=== PATIENT | male | born 1985 | race Caucasian/White ===

== ENCOUNTER 2016-12-03 10:45 | Emergency (ER) | payer SELFPAY ==
[2016-12-03 10:59] VITALS: TEMP 98; BMI 29.5
[2016-12-03] MEDS ORDERED: ASPIRIN 81 MG CHEWABLE TABLETS PO ONE (11:47)
--- NOTE | 2016-12-03 11:47 | PDOC ---
History of Present Illness - General Chief Complaint: Chest Pain Stated Complaint: LEFT UPPER CHEST PRESSURE & MUSCLE CRAMPING Time Seen by Provider: 12/03/16 10:51 History Source: Patient Exam Limitations: No Limitations - History of Present Illness Initial Comments: 31 yo M no PMH presents with L-sided chest pain for past 2 days. He states that it feels like a tightness. No associated SOB, N/V, diaphoresis, SERRA. No known trauma. He states that he has been under very high stress, particularly as he was recently laid off and does not have insurance anymore. He also notes that he has strong family history of CAD. He does not have a PMD, and has not had any cardiac testing in the past. He is an active smoker (he previously quit last fall but has been smoking again), and drinks alcohol socially. Past History - Past Medical History Allergies/Adverse Reactions: Allergies Allergy/AdvReac Type Severity Reaction Status Date / Time No Known Allergies Allergy Verified 12/03/16 10:48 Home Medications: Ambulatory Orders NK [No Known Home Medication] 12/03/16 GI Disorders: Yes - Surgical History Abdominal Surgery: Yes (UMBILICAL HERNIA REPAIR, MESH) - Psycho/Social/Smoking Cessation Hx Anxiety: No Suicidal Ideation: No Smoking History: Current every day smoker Have you smoked in the past 12 months: Yes Number of Cigarettes Smoked Daily: 20 Information on smoking cessation initiated: Yes 'Breaking Loose' booklet given: 02/08/16 Hx Alcohol Use: Yes (EVERY OTHER DAY) Drug/Substance Use Hx: No Substance Use Type: None Review of Systems - Review of Systems Able to Perform ROS?: Yes Comments:: GENERAL/CONSTITUTIONAL: No fever or chills. No weakness. HEAD, EYES, EARS, NOSE AND THROAT: No change in vision. No ear pain or discharge. No sore throat. CARDIOVASCULAR: +Chest pain. No shortness of breath. RESPIRATORY: No cough, wheezing, or hemoptysis. GASTROINTESTINAL: No nausea, vomiting, diarrhea or constipation. GENITOURINARY: No dysuria, frequency, or change in urination. MUSCULOSKELETAL: No joint or muscle swelling or pain. No neck or back pain. SKIN: No rash NEUROLOGIC: No headache, vertigo, loss of consciousness, or change in strength/ sensation. ENDOCRINE: No increased thirst. No abnormal weight change. HEMATOLOGIC/LYMPHATIC: No anemia, easy bleeding, or history of blood clots. ALLERGIC/IMMUNOLOGIC: No hives or skin allergy. *Physical Exam - Vital Signs Last Vital Signs Temp Pulse Resp BP Pulse Ox 98.0 F 88 15 127/96 97 12/03/16 10:48 12/03/16 10:48 12/03/16 10:48 12/03/16 10:48 12/03/16 10:48 - Physical Exam Comments: GENERAL: Awake, alert, and fully oriented, in no acute distress. Mildly anxious. HEAD: No signs of trauma EYES: PERRLA, EOMI, sclera anicteric, conjunctiva clear ENT: Auricles normal inspection, hearing grossly normal, nares patent, oropharynx clear without exudates. Moist mucosa NECK: Normal ROM, supple, no lymphadenopathy, JVD, or masses LUNGS: Breath sounds equal, clear to auscultation bilaterally. No wheezes, and no crackles HEART: Regular rate and rhythm, normal S1 and S2, no murmurs, rubs or gallops ABDOMEN: Soft, nontender, normoactive bowel sounds. No guarding, no rebound. No masses EXTREMITIES: Normal range of motion, no edema. No clubbing or cyanosis. No cords , erythema, or tenderness NEUROLOGICAL: Cranial nerves II through XII grossly intact. Normal speech, normal gait SKIN: Warm, Dry, normal turgor, no rashes or lesions noted. Heart Score/ECG Review - History History: Slightly suspicious - Electrocardiogram EKG: Normal - Age Age: </= 45 - Risk Factors Risk Factors Heart Score: Yes Positive family hx of cardiac disease Based on the list above the patient has:: 1-2 risk factors - Troponin Troponin: </= normal limit - Score Heart Score - Total: 1 - ECG Impressions Comment:: EKG 10:55- NSR 68 bpm, no acute ST/T changes ED Treatment Course - LABORATORY CBC & Chemistry Diagram: 12/03/16 11:50 12/03/16 11:50 Medical Decision Making - Medical Decision Making Low risk for PE or ACS by clinical eval. HEART score is low, EKG is wnl. CXR no acute findings. However, he does have family history, and should have a PMD with outpatient f/u. IN light of recent lost health insurance, I recommended the [facility]. I counseled him that he may need additional testing as an outpatient. We also discussed smoking cessation. *DC/Admit/Observation/Transfer Diagnosis at time of Disposition: Chest pain Qualifiers: Chest pain type: unspecified Qualified Code(s): R07.9 - Chest pain, unspecified - Discharge Dispostion Disposition: HOME Condition at time of disposition: Stable Admit: No - Referrals Referrals: Tiana Hammond MD [Staff Physician] - Shana Macdonald MD [Staff Physician] - - Patient Instructions Printed Discharge Instructions: Tips to Help You Stop Smoking, DI for Chest Pain Additional Instructions: TAKE A BABY ASPIRIN (81 MG CHEWABLE) DAILY UNTIL YOU FOLLOW UP.
[2016-12-03 12:09] LABS: BASOPHIL 2.6 % (0-2.0); EOSINOPHIL 1.7 % (0-4.5); MCH 31.9 pg (25.7-33.7); MCHC 35.2 g/dl (32.0-35.9); MEAN CELL VOLUME 90.6 fl (80-96); NEUTROPHILS 59.8 % (42.8-82.8); PLATELET COUNT 188 K/MM3 (134-434); RDW 11.2 % (11.9-15.9); WHITE BLOOD COUNT 7.5 K/mm3 (4.0-10.8)
[2016-12-03 12:11] VITALS: BP 132/85; PULSE 63
[2016-12-03 12:24] LABS: ALBUMIN 3.9 g/dl (3.5-5.0); ALK PHOS 47 U/L (32-92); ANION GAP 7 (8-16); BILIRUBIN,TOTAL 0.7 mg/dl (0.2-1.0); CALCIUM 9.6 mg/dl (8.4-10.2); CO2 26 mmol/L (22-28); CPK(DFH) 214 IU/L (38-174); CREATININE 1.2 mg/dl (0.6-1.3); GLUCOSE,RANDOM 100 mg/dl (74-106); SGOT/AST 39 U/L (10-42); SGPT/ALT 62 U/L (10-40); TOT PROT 6.7 g/dl (6.4-8.3)
[2016-12-03 12:31] LABS: TROPONIN I (DFP) < 0.03 ng/ml (0.03-0.50)
--- NOTE | 2016-12-04 14:45 | EKG ---
Test Reason : Blood Pressure : / mmHG Vent. Rate : 068 BPM Atrial Rate : 068 BPM P-R Int : 160 ms QRS Dur : 074 ms QT Int : 380 ms P-R-T Axes : 052 -02 033 degrees QTc Int : 404 ms NORMAL SINUS RHYTHM NORMAL ECG NO PREVIOUS ECGS AVAILABLE Confirmed by KEREN DUMONT MD ([id number]) on 12/04/2016 2:45:11 PM Referred By: MD STEVEN Confirmed By:KEREN DUMONT MD
== END 2016-12-03 12:47 | disposition home or self-care (01) ==
LOC: FER 10:45
DX: R07.9 Chest pain, unspecified (principal); F17.210 Nicotine dependence, cigarettes, uncomplicated
CPT/HCPCS: 36415; 71010-TC; 80053; 82550; 82553; 83690; 84484; 85025; 93005; 99285-25

== ENCOUNTER 2017-01-21 17:30 | Emergency (ER) | payer OTHER ==
[2017-01-21 17:48] VITALS: BP 134/101; PULSE 94; TEMP 97.9; BMI 31.0
--- NOTE | 2017-01-21 17:57 | PDOC ---
History of Present Illness - General History Source: Patient Exam Limitations: No Limitations - History of Present Illness Initial Comments: 01/21/17 18:13 The patient is a 31 year old male, with no significant past medical history who presents to the emergency department with white discharge from his penis, dysuria, and urinary urgency since saturday. The patient reports having discharge only during the morning. He reports his pain is mild. He denies using protection , but notes having the same partner for about 2 years. He denies any anal sex. He denies any recent fevers, chills, headache or dizziness. He denies any recent nausea, vomit, diarrhea or constipation. He denies any recent chest pain or shortness of breath. He denies any recent frequency or hematuria. Allergies: NKA Past surgical history: None reported. Social History: Nonsmoker. Denies EtOH use and recreational drug use. <Yo Allen - Last Filed: 01/21/17 18:12> <Monico Guillen - Last Filed: 01/21/17 18:40> - General Chief Complaint: Urinary Problem Stated Complaint: URINARY SX Time Seen by Provider: 01/21/17 17:32 Past History <Yo Allen - Last Filed: 01/21/17 18:12> - Past Medical History GI Disorders: Yes (HEARTBURN) - Surgical History Abdominal Surgery: Yes (UMBILICAL HERNIA REPAIR, MESH) - Psycho/Social/Smoking Cessation Hx Anxiety: No Suicidal Ideation: No Smoking History: Current every day smoker Have you smoked in the past 12 months: Yes Number of Cigarettes Smoked Daily: 10 Information on smoking cessation initiated: Yes 'Breaking Loose' booklet given: 01/21/17 Hx Alcohol Use: (social) Drug/Substance Use Hx: No Substance Use Type: None <Monico Guillen - Last Filed: 01/21/17 18:40> - Past Medical History Allergies/Adverse Reactions: Allergies Allergy/AdvReac Type Severity Reaction Status Date / Time No Known Allergies Allergy Verified 01/21/17 17:31 Home Medications: Ambulatory Orders Omeprazole/Sodium Bicarbonate [Zegerid 20mg (RX)] 1 each PO DAILY 01/21/17 Varenicline Tartrate [Chantix] 1 mg PO ASDIR 01/21/17 Review of Systems - Review of Systems Able to Perform ROS?: Yes Comments:: 01/21/17 18:13 CONSTITUTIONAL: No reported: Fever, Chills, Diaphoresis, Generalized Weakness, Malaise, Loss of Appetite HEENT: No reported: Rhinorrhea, Nasal Congestion, Throat Pain, Throat Swelling, Difficulty Swallowing, Mouth Swelling, Ear Pain, Eye Pain, Visual Changes CARDIOVASCULAR: No reported: Chest Pain, Syncope, Palpitations, Irregular Heart Rate, Lightheadedness, Peripheral Edema RESPIRATORY: No reported: Cough, Shortness of Breath, SOB with Exertion, Orthopnea, Wheezing , Stridor, Hemoptysis GASTROINTESTINAL: No reported: Abdominal pain, Abdominal Distension, Nausea, Vomiting, Diarrhea, Constipation, Melena, Hematochezia GENITOURINARY: + Dysuria, Frequency, Urgency No Hesitancy, Flank Pain, Genital Pain MUSCULOSKELETAL: No reported: Myalgia, Arthralgia, Joint Swelling, Back pain, Neck Pain SKIN: No reported: Rash, Itching, Pallor HEMATOLOGIC/IMMUNOLOGIC: No reported: Easy Bleeding, Easy Bruising, Lymphadenopathy, Frequent infections ENDOCRINE: No reported: Unexplained Weight Gain, Unexplained Weight Loss, Heat Intolerance , Cold Intolerance NEUROLOGIC: No reported: Headache, Focal Weakness, Paresthesias, Vertigo, Lightheadedness, Unsteady Gait, Seizure, Mental Status Changes, Incontinence PSYCHIATRIC: No reported: Anxiety, Depression <Yo Allen - Last Filed: 01/21/17 18:12> *Physical Exam - Vital Signs Last Vital Signs Temp Pulse Resp BP Pulse Ox 97.9 F 94 H 18 134/101 99 01/21/17 17:30 01/21/17 17:30 01/21/17 17:30 01/21/17 17:30 01/21/17 17:30 - Physical Exam Comments: 01/21/17 18:13 GENERAL: The patient is awake, alert, and fully oriented, Nontoxic - in no acute distress. HEAD: Normocephalic, atraumatic. ABDOMEN: Soft, nontender, normoactive bowel sounds. No guarding, no rebound.No CVA tenderness : Circumcised penis. No rashes. No discharge. Normal testicular exam. SKIN: Warm, Dry, normal turgor. <Yo Allen - Last Filed: 01/21/17 18:12> - Vital Signs Last Vital Signs Temp Pulse Resp BP Pulse Ox 97.9 F 94 H 18 134/101 99 01/21/17 17:30 01/21/17 17:30 01/21/17 17:30 01/21/17 17:30 01/21/17 17:30 <Monico Guillen - Last Filed: 01/21/17 18:40> Medical Decision Making - Medical Decision Making 01/21/17 17:55 31yM presenting with dysuria and whitish penile discharge in the morning since saturday. no fever/chills, n/v, back pain, abd pain, penile rashes. pt in a monogamous relationship with 1 partner and is not consistent with using barrier contraception exam unremkarable std vs uti will ck ua, gc A portion of this note was documented by scribe services under my direction. I have reviewed the details of the note, within reason, and agree with the documentation with the following case summary and management plan written by me 01/21/17 18:35 pt not clearly idnicative of UTI will treat presumptively for GC if culutre + will treat when it is positive if GC +, will notify pt that his GF will need to be treated as well return precautions were discussed I discussed the physical exam findings, ancillary test results and final diagnoses with the patient. I answered all of the patient's questions. The patient was satisfied with the care received and felt comfortable with the discharge plan and treatment plan. The patient will call their primary care physician within 24 hours to arrange follow-up and will return to the Emergency Department with any new, persistent or worsening symptoms. <Monico Guillen - Last Filed: 01/21/17 18:40> *DC/Admit/Observation/Transfer - Attestations Scribe Attestion: 01/21/17 18:13 Documentation prepared by Yo Allen, acting as hospitalist medical director for Monico Guillen MD. <Yo Allen - Last Filed: 01/21/17 18:12> - Discharge Dispostion Admit: No <Monico Guillen - Last Filed: 01/21/17 18:40> Diagnosis at time of Disposition: Urethritis - Discharge Dispostion Disposition: HOME Condition at time of disposition: Improved - Referrals Referrals: Manda Cooper MD [Staff Physician] - - Patient Instructions Printed Discharge Instructions: DI for Urethritis Additional Instructions: Return to the emergency department immediately with ANY new, persistent or worsening symptoms including worsening abdominal pain, fevers, inability to tolerate oral intake, chest pain, shortness of breath or any other concerns. Stay well hydrated. Your GC culture is pending, if it is positive, your girl friend will need to be treated. Your urine culture is also pending, if it is positive, you will need to be treated with an antibiotic. We will notify you if it is positive. Your emergency department visit is not complete without a followup with your doctor for reevaluation. Please make sure your doctor reviews the results of your emergency evaluation. Print Language: CHINESE
[2017-01-21 18:14] LABS: URINE APPEARANCE Clear; URINE BILIRUBIN Negative (NEGATIVE); URINE BLOOD Trace-lysed (NEGATIVE); URINE COLOR YELLOW; URINE GLUCOSE (UA) Negative (NEGATIVE); URINE KETONE Negative (NEGATIVE); URINE LEUK ESTERASE 1+ (NEGATIVE); URINE NITRITE Negative (NEGATIVE); URINE PROTEIN Negative (NEGATIVE); URINE UROBILINOGEN 0.2 (0.2-1.0)
[2017-01-21] MEDS ORDERED: AZITHROMYCIN 1 GM PACKET PO ONE (18:34)
[2017-01-21] MEDS ORDERED: AZITHROMYCIN 250 MG TABLET (FP) ONE (18:56)
[2017-01-21 20:31] LABS: URINE BACTERIA FEW /hpf (NEGATIVE)
--- NOTE | 2017-01-23 17:01 | PDOC ---
Patient Follow-up (Call Back) - Post ED Follow - Up Condition at time of discharge: Improved Disposition at time of original discharge: HOME - Disposition Additional Instructions/Notes: Received a report of positive urine screen for chlamydia. Patient adequately treated during his ER visit with ceftriaxone and azithromycin. Contacted the patient by phone to inform him of the positive result and the necessity of examination treatment of all sexual contacts. He is now asymptomatic, understands the necessity of informing all sexual contacts so they can be examined and treated as well, and agrees. He was grateful for the information and agrees to follow recommendations.
== END 2017-01-21 19:10 | disposition home or self-care (01) ==
LOC: FER 17:30
DX: N34.2 Other urethritis (principal); F17.210 Nicotine dependence, cigarettes, uncomplicated; R12 Heartburn
CPT/HCPCS: 36415; 81003; 81015; 87086; 87491; 87591; 96372; 99282-25

== ENCOUNTER 2018-04-21 20:06 | Emergency (ER) | payer SELFPAY ==
[2018-04-21 20:41] VITALS: TEMP 98.2; BMI 32.6
--- NOTE | 2018-04-21 21:00 | PDOC ---
History of Present Illness - General Chief Complaint: Pain, Acute Stated Complaint: COUGH/ABDOMINAL DISCOMFORT Time Seen by Provider: 04/21/18 20:15 - History of Present Illness Initial Comments: 04/21/18 23:46 The patient is a 33 year old male with past medical history of GERD, umbilical hernia repair years ago who presents to the ED with complaints of sore throat and epigastric abdominal pain since this morning. Patient states last night while sleeping on his back, his fiance noticed he was coughing and snoring loudly in his sleep for 1-2 minutes. She also states he looked like he was gasping for a few seconds. His fiance states she then turned him on his side and he was sleeping normally again. Patient reports drinking 6 beers last night. This morning he reports waking up with a sore throat and a soreness in his epigastric abdominal region, stating it felt like he had done a lot of sit ups. He only feels the soreness when he sits up. He was able to work throughout the day with these symptoms, but wanted to come in to get checked out given the event his fiance described last night. He denies any associated fevers, chills, nausea, vomiting, diarrhea, cough, SOB, chest pain, dizziness, focal weakness/numbness, or urinary complaints. Patient does not have a PCP. Allergies: NKDA. Social: Smokes 4-6 small cigars/day. Drinks socially but not every day. Past History - Past Medical History Allergies/Adverse Reactions: Allergies Allergy/AdvReac Type Severity Reaction Status Date / Time No Known Allergies Allergy Verified 04/21/18 20:10 Home Medications: Ambulatory Orders Omeprazole/Sodium Bicarbonate [Zegerid 20mg (RX)] 1 each PO DAILY 01/21/17 COPD: No GI Disorders: Yes (HEARTBURN) - Surgical History Abdominal Surgery: Yes (UMBILICAL HERNIA REPAIR, MESH) - Suicide/Smoking/Psychosocial Hx Smoking History: Current every day smoker Have you smoked in the past 12 months: Yes Number of Cigarettes Smoked Daily: 10 Cigars Per Day: 5 Information on smoking cessation initiated: Yes 'Breaking Loose' booklet given: 01/21/17 Hx Alcohol Use: No Drug/Substance Use Hx: No Substance Use Type: None Review of Systems - Review of Systems Comments:: 04/21/18 23:58 GENERAL/CONSTITUTIONAL: No fever or chills. No weakness. HEAD, EYES, EARS, NOSE AND THROAT: (+) Sore throat. No change in vision. No ear pain or discharge. GASTROINTESTINAL: (+) Abdominal pains. No nausea, vomiting, diarrhea or constipation. GENITOURINARY: No dysuria, frequency, or change in urination. CARDIOVASCULAR: No chest pain or shortness of breath. RESPIRATORY: No cough, wheezing, or hemoptysis. MUSCULOSKELETAL: No joint or muscle swelling or pain. No neck or back pain. SKIN: No rash NEUROLOGIC: No headache, vertigo, loss of consciousness, or change in strength/ sensation. ENDOCRINE: No increased thirst. No abnormal weight change. HEMATOLOGIC/LYMPHATIC: No anemia, easy bleeding, or history of blood clots. ALLERGIC/IMMUNOLOGIC: No hives or skin allergy. *Physical Exam - Vital Signs Last Vital Signs Temp Pulse Resp BP Pulse Ox 98.2 F 100 H 16 149/101 H 96 04/21/18 20:13 04/21/18 20:13 04/21/18 20:13 04/21/18 20:13 04/21/18 20:13 - Physical Exam Comments: 04/21/18 23:58 GENERAL: Awake, alert, and fully oriented, in no acute distress HEAD: No signs of trauma EYES: PERRLA, EOMI, sclera anicteric, conjunctiva clear ENT: Auricles normal inspection, hearing grossly normal, nares patent, oropharynx clear without exudates. Moist mucosa NECK: Normal ROM, supple, no lymphadenopathy, JVD, or masses LUNGS: Breath sounds equal, clear to auscultation bilaterally. No wheezes, and no crackles HEART: Regular rate and rhythm, normal S1 and S2, no murmurs, rubs or gallops ABDOMEN: Soft, nontender, normoactive bowel sounds. No guarding, no rebound. No masses EXTREMITIES: Normal range of motion, no edema. No clubbing or cyanosis. No cords, erythema, or tenderness NEUROLOGICAL: Normal speech, cranial nerves intact, negative pronator drift, 5/ 5 strength in all 4 extremities, normal sensation to light touch in all 4 extremities, normal cerebellar exam, normal gait, normal reflexes and tone SKIN: Warm, Dry, normal turgor, no rashes or lesions noted. Heart Score/ECG Review #1 04/21/18 23:59 Twelve-lead EKG was performed and reviewed by me. Normal sinus rhythm, rate 90. Normal axis and intervals. No ST elevations. Isolated T-wave inversion in lead 3. ED Treatment Course - LABORATORY CBC & Chemistry Diagram: 04/21/18 21:36 04/21/18 21:36 Medical Decision Making - Medical Decision Making 04/21/18 23:59 33yo M presents to the ED with epigastric pain, sore throat, and episode of loud snoring, gasping for air last night while sleeping according to his fiance. Vitals here wnl. Exam completely normal, no erythema, exudates in throat. No abd ttp throughout. It's possible pt has sleep apnea and may have had apneic event last night, he reports snoring otherwise on most nights. Sore throat could be due to snoring. Unclear etiology of epigastric abd soreness, but no ttp on exam and labs including lipase wnl. Basic labs, EKG, CXR checked, all with no remarkable findings. Pt has felt well all day, and is well appearing at this time. All results explained to pt, will refer to PMD, may need sleep study. Pt requests DC home. I discussed the physical exam findings, ancillary test results and final diagnoses with the patient. I answered all of the patient's questions. The patient was satisfied with the care received and felt comfortable with the discharge plan and treatment plan. The patient will call their primary care physician within 24 hours to arrange follow-up and will return to the Emergency Department with any new, persistent or worsening symptoms. *DC/Admit/Observation/Transfer Diagnosis at time of Disposition: Epigastric abdominal pain - Discharge Dispostion Disposition: HOME Condition at time of disposition: Stable Decision to Admit order: No - Referrals Referrals: [facility] [Provider Group] - Patient Instructions Printed Discharge Instructions: DI for Epigastric Pain Additional Instructions: Follow up with a primary doctor within 1 week. Return to the emergency department if you have any new, worsening, or concerning symptoms. - Post Discharge Activity - Attestations Physician Attestion: 04/21/18 23:45 I, Dr. Celso Salas MD, attest that this document has been prepared under my direction and personally reviewed by me in its entirety. I further attest, that it accurately reflects all work, treatment, procedures and medical decision -making performed by me.
[2018-04-21 21:48] LABS: HEMATOCRIT 48.9 % (35.4-49); HEMOGLOBIN 16.5 GM/dl (11.7-16.9); LYMPH % 21.5 % (8-40); MCH 32.3 pg (25.7-33.7); MCHC 33.7 g/dl (32.0-35.9); MEAN CELL VOLUME 95.8 fl (80-96); MEAN PLT VOLUME 7.9 fl (7.5-11.1); NEUT % 66.5 % (42.8-82.8); PLATELET COUNT 196 K/MM3 (134-434); RBC 5.11 M/mm3 (4.00-5.60); RDW 11.6 % (11.9-15.9); WHITE BLOOD COUNT 10.8 K/mm3 (4.0-10.8)
[2018-04-21 21:57] LABS: URINE APPEARANCE Clear; URINE BILIRUBIN Negative (NEGATIVE); URINE COLOR Yellow; URINE GLUCOSE (UA) Negative (NEGATIVE); URINE KETONE Trace (NEGATIVE); URINE LEUK ESTERASE Negative (NEGATIVE); URINE NITRITE Negative (NEGATIVE); URINE PROTEIN Negative (NEGATIVE); URINE UROBILINOGEN 0.2 (0.2-1.0)
[2018-04-21 22:07] LABS: ALBUMIN 4.6 g/dl (3.5-5.0); ALK PHOS 60 U/L (32-92); ANION GAP 10 MMOL/L (8-16); BILIRUBIN,TOTAL 0.4 mg/dl (0.2-1.0); BLOOD UREA NITROGEN 14 mg/dl (7-18); CALCIUM 9.8 mg/dl (8.4-10.2); CHLORIDE 96 mmol/L (98-107); CO2 28 mmol/L (22-28); CREATININE 1.1 mg/dl (0.6-1.3); GLUCOSE,RANDOM 97 mg/dl (74-106); POTASSIUM 4.2 mmol/L (3.5-5.1); SGOT/AST 40 U/L (10-42); SGPT/ALT 70 U/L (10-40); SODIUM 134 mmol/L (136-145); TOT PROT 7.8 g/dl (6.4-8.3)
[2018-04-21 22:19] LABS: URINE BACTERIA 1+ /hpf (NEGATIVE); URINE WBC 0-2 (0-2)
[2018-04-21 22:58] LABS: LIPASE 240 U/L (73-393)
[2018-04-21 23:53] VITALS: BP 131/98; PULSE 88
--- NOTE | 2018-04-22 12:10 | EKG ---
Test Reason : Blood Pressure : / mmHG Vent. Rate : 090 BPM Atrial Rate : 090 BPM P-R Int : 158 ms QRS Dur : 070 ms QT Int : 354 ms P-R-T Axes : 032 -20 011 degrees QTc Int : 433 ms NORMAL SINUS RHYTHM NORMAL ECG Confirmed by MD ASHLEY, CHAD ([id number]) on 04/22/2018 12:09:48 PM Referred By: BOO Confirmed By:CHAD RAMIREZ MD
== END 2018-04-21 23:55 | disposition home or self-care (01) ==
LOC: FER 20:06
DX: R10.13 Epigastric pain (principal); K21.9 Gastro-esophageal reflux disease without esophagitis; F17.210 Nicotine dependence, cigarettes, uncomplicated
CPT/HCPCS: 36415; 71045-TC-FY; 80053; 81003; 81015; 83690; 84484; 85025; 93005; 99282-25